=== PATIENT | female | born 1985 | race Caucasian/White ===

== ENCOUNTER → 2023-02-21 10:51 | Outpatient (CLI) | payer OTHER, SELFPAY ==
--- NOTE | 2023-02-21 10:57 | DI.MRI.S_ITS ---
PROCEDURE: MR LUMBAR SPINE WO CON INDICATIONS: Spondylolisthesis, lumbosacral region TECHNIQUE: Noncontrast sagittal T1 spin echo and T2 fast echo, sagittal STIR, and T2 fast spin echo through the lumbar spine. In cases with scoliosis, additional coronal T2 fast spin echo may be performed. COMPARISON: [facility] Outside Film, CR, XR LUMBAR SPINE 2 OR 3 VIEWS, 01/13/2023, 8:48. FINDINGS: Image quality: Excellent. Alignment and Curvature: There is normal bony alignment. Bone Marrow: Marrow is of normal overall signal. No acute vertebral body compression fractures. Spinal Cord: Conus medullaris terminates at the lower L1 level. Visualized cord demonstrates normal signal and size. Paraspinous Soft Tissues: No paravertebral masses. T12-L1: Normal appearance. L1-L2: Minimal disc bulge. No canal stenosis or foraminal stenosis. L2-L3: Normal appearance. L3-L4: Disc bulge. Mild facet hypertrophy. No canal stenosis or foraminal stenosis. L4-L5: Posterior annulus tear plus mild central posterior disc protrusion. Facet hypertrophy. No canal stenosis or significant foraminal stenosis. L5-S1: Bilateral L5 pars defects. Grade 1 anterolisthesis of L5 on S1 measuring 6 mm. Diffuse posterior disc bulge. No canal stenosis. Severe bilateral foraminal stenosis with bilateral foraminal L5 nerve root impingement. IMPRESSION: 1. There are bilateral L5 pars defects with grade 1 anterolisthesis of L5 on S1 and severe bilateral foraminal narrowing and bilateral foraminal L5 nerve root impingement. 2. Posterior annulus tear plus mild central posterior disc protrusion at L4-L5. There is no canal stenosis at this level. 3. Facet hypertrophy at L3-L4 and L4-L5. Dictated by: Watson Rios M.D. on 02/22/2023 at 8:42 Approved by: Watson Rios M.D. on 02/22/2023 at 8:46
== END ==
PROVIDERS: Referring Provider Orthopaedic Surgery Orthopaedic Surgery of the Spine; Visit Provider Orthopaedic Surgery Orthopaedic Surgery of the Spine
DX: M43.17 Spondylolisthesis, lumbosacral region (principal); M51.26 Other intervertebral disc displacement, lumbar region; M51.36 Other intervertebral disc degeneration, lumbar region
CPT/HCPCS: 72148